=== PATIENT | male | born 1950 | race Caucasian/White ===

== ENCOUNTER 2019-12-25 11:34 | Observation (INO) | payer OTHER ==
[~2019-12-25] VITALS: Ht 182.9 cm; Wt 110.3 kg
[2019-12-25 11:34] VITALS: BP 172/108
[~2019-12-25 11:34] MED LIST: CELEXA 10 MG TA10 M1 PO; COREG25 MG PO; COZAAR100 MG PO; IPRAT-ALBUT 0.5-3 ML INH; LANTUS100 UNIT/M SUBQ; LEVAQUIN 750 M750 MG PO; LIDODERM1 EACH TOP; LIPITOR10 MG PO; MELATONIN5 M1 PO; METFORMIN HCL500 M3 PO; PLAVIX 75 MG TA75 MG PO; PREVACID30 MG PO; PRINIVIL5 MG PO; SPIRONOLACTONE25 MG PO; SUPER THERAVIT1 EACH PO; TRAMADOL 50 MG50 MG PO
[2019-12-25] MEDS ORDERED: BISACODYL10 MG RECTAL (11:45)
[2019-12-25] MEDS ORDERED: GLUCAGEN1 M2 IM (11:48)
[2019-12-25] MEDS ORDERED: FAMOTIDINE 40 M40 M1 PO (11:49)
[2019-12-25] MEDS ORDERED: MILK OF MA400 MG/5 M PO (11:49)
--- NOTE | 2019-12-25 12:56 | EKG ---
[facility] [place] [address] ELECTROCARDIOGRAM REPORT Name: ANUJ NICOLE Room #: [facility].#: [id number] Admission: 12/25/19 Attend Phys: Discharge: Date of : 46 Report #: [id number] THIS REPORT FOR: cc: Anuj Grajeda James D. DO Lundgren, Craig H. MD [facility] ~ THIS REPORT FOR: //name// [facility] ED Test Date: 2019-12-25 Test Time: 11:34:32 Pat Name: ANUJ NICOLE Department: Room: Gender: Senior Financial: [facility] : 1950 Requested By: Loly Mayes Order Number: [id number] MD: Kervin Major Measurements Intervals [place] Rate: 75 P: 45 CO: 160 QRS: 33 QRSD: 105 T: 174 QT: 441 QTc: 493 Interpretive Statements Sinus bradycardia Ventricular bigeminy Poor R wave progression Nonspecific ST and T wave abnormality no previous ECG available for comparison Electronically Signed On 12-25-2019 12:56:13 CDT by Kervin Major [email or web address] <ELECTRONICALLY SIGNED> By: Kervin Major MD, FACC 12/25/19 [id number] Kervin Major MD, [facility] /EPI
[2019-12-25 13:21] LABS: ANION GAP 9 mmol/L (7-16); BUN 23 mg/dL (7-18); CALCIUM 8.7 mg/dL (8.5-10.1); CHLORIDE 109 mmol/L (98-107); CO2 27 mmol/L (21-32); CREATININE 0.9 mg/dL (0.7-1.3); GLUCOSE 85 mg/dL (74-106); POTASSIUM 3.9 mmol/L (3.5-5.1); SODIUM 145 mmol/L (136-145)
[2019-12-25 13:26] LABS: APTT 29.2 Seconds (24.5-32.8); D-DIMER 0.41 ug/mLFEU (0.19-0.50); INR 1.1; PROTIME 11.4 Seconds (9.3-11.4)
[2019-12-25 13:32] LABS: LIPASE 62 U/L (73-393); MAGNESIUM 1.7 mg/dL (1.8-2.4); SGOT 19 U/L (15-37); SGPT 16 U/L (30-65); TOTAL BILIRUBIN 0.5 mg/dL (0.2-1.0); TOTAL PROTEIN 6.7 g/dL (6.4-8.2); TROPONIN-I <0.06 ng/mL (<0.06)
[2019-12-25 13:54] LABS: BASOPHILS 0.3 % (0.0-2.0); EOSINOPHILS 1.4 % (0.0-3.0); HEMATOCRIT 39.7 % (42.0-52.0); LYMPHOCYTES 20.3 % (24.0-44.0); MCH 28.3 pg (26.0-34.0); MCHC 32.8 g/dL (28.0-37.0); MCV 86.3 fL (80.0-100.0); MONOCYTES 9.3 % (1.0-8.0); PLATELET COUNT 200 thou/uL (150-400); POLYS 68.7 % (36.0-66.0); RDW 15.9 % (10.5-14.5); WBC 5.8 thou/uL (4.0-11.0)
[2019-12-25 17:53] VITALS: BP 160/40
[2019-12-25 19:41] VITALS: BP 168/86
[2019-12-25] MEDS ORDERED: TYLENOL325 M1 PO (23:36)
[2019-12-25] MEDS ORDERED: ONDANSETRON ODT4 MG PO (23:38)
--- NOTE | 2019-12-26 04:57 | NUR ---
PT ARRIVED TO UNIT APPROX 1850, ADMISSION AND ASSESSMENT COMPLETED. PT ALERT TO HIMSELF AND YEAR, KNEW HE WAS IN THE HOSPITAL BUT DIDN'T KNOW WHICH ONE; INCONT OF BLADDER W/ RED PERIAREA AND BUTTOCKS EXCORIATED. ON RA, DIM LUNGS, DENIES SOB. BIGEMINY WITH RATE OF 60 ON TELE. PT IS W/C BOUND, ABLE TO STAND/PIVOT WITH ASSISTANCE; FEEDS SELF, ACCUCHECK ACHS. SPOKE W/ PT'S DAUGHTER, PEEWEE, WHO IS HIS DPOA. SHE REPORTS HE LIVED IN [place] AND HAD NO SUPPORT SYSTEM, MOVED IN WITH HER IN SEP 2018. HE HAD MULTIPLE STROKES, AND WAS NO LONGER ABLE TO AMBULATE; HE WENT TO A FACILITY BC SHE COULD NO LONGER CARE FOR HIM. SHE REPORTS BEING UNAWARE OF HIM HAVING CARDIAC STENTS PLACED IN MAY 2019. NO OTHER CONCERNS, WILL CONTINUE TO MONITOR.
[2019-12-26 05:43] VITALS: BP 158/69
[2019-12-26 05:51] LABS: HEMATOCRIT 37.5 % (42.0-52.0); HEMOGLOBIN 12.5 gm/dL (14.0-18.0); MCH 28.5 pg (26.0-34.0); MCHC 33.2 g/dL (28.0-37.0); MCV 85.8 fL (80.0-100.0); RBC 4.37 mil/uL (4.50-6.00); RDW 15.6 % (10.5-14.5); WBC 5.7 thou/uL (4.0-11.0)
[2019-12-26 06:06] LABS: CALCIUM 8.4 mg/dL (8.5-10.1); CREATININE 0.8 mg/dL (0.7-1.3); POTASSIUM 3.5 mmol/L (3.5-5.1)
[2019-12-26 08:40] VITALS: BP 170/75
[2019-12-26] MEDS ORDERED: HYDRALAZINE 2525 MG PO (11:07)
[2019-12-26] MEDS ORDERED: LANTUS100 UNIT/M SUBQ (11:09)
--- NOTE | 2019-12-26 13:49 | NUR ---
Nancy from [facility] contacted this CM to get update on d/c date. cm completed assessment w/pt dtr, d/t pt having dementia dx and being a poor historian, according to pt's chart record. pt dtr, hector, stated pt lived w/her prior to moving to facility in February. stated pt seems to be adjusting to move well. pt stated she was upset the facility did not inform her pt was hospitalized; instead she received a call from ED. hector ask me to have staff from [facility] contact her to discuss. nancy stated she would reachout to [facility]. pt ambulates but has unsteady gait, and increased falls. pt has scooter walker and w/c per hector. hector stated her goal is for pt to moved back to [facility] was he is covid negative, b/c he was moved to a different facilty to covid positive result. cm to cont to follow.
--- NOTE | 2019-12-26 15:35 | NUR ---
ASSUMED CARE OF PT AT 0700. PT CONFUSED, ORIENTED TO SELF - APPEARS AT BASELINE. IN NO ACUTE DISTRESS. NOT TRUSTING STAFF TO TAKE MEDS - ONCE PATIENT SPOKE WITH DAUGHTER, IS NOW AGREEABLE TO TAKE ANTIHYPERTENSIVES. IN AND OUT OF BIGEMINY ON TELEMETRY. OK FOR DISCHARGE. WAITING ON TRANSPORT.
--- NOTE | 2019-12-26 15:35 | NUR ---
PT DISCHARGING TODAY BACK TO [facility] FOR SKILLED STAY FAXED DC ORDERS/SUMMARY TO FACILITY SPOKE WITH RODRIGUEZ IN ADM SHE RECEIVED ORDERS AND ARRANGED TRANSPORT BY [facility] FOR [phone] TODAY. SW (JORDI) NOTIFIED FAMILY OF DC. UNIT NOTIFIED AND CHART COPY PER US. RN TO CALL REPORT TO [phone].
--- NOTE | 2019-12-26 16:04 | NUR ---
[facility] D/C ORDERS AND SCHEDULED TRANSPORTATION BTWN 4-5. [facility] NOTIFIED UNIT. CM REQUESTED CHART COPY AND NOTIFIED PT'S DTR OF SCHEDULED TIME FOR [facility]. PEEWEE ALSO WANTED TO KNOW IF PT WOULD RTRN TO [facility]. PER RODRIGUEZ, PT WILL RTRN TO [facility] D/T COVID +. RN PROVIDED NUMBER TO CALL REPORT [phone]; "COVID UNIT."
[2019-12-26 16:20] VITALS: BP 163/79
== END 2019-12-26 17:05 ==
LOC: ER 11:34 → EROBS 14:30 → 3W 14:30
PROVIDERS: Physician Assistant; ADMIT Hospitalist; ATTEND Hospitalist
DX: U07.1 COVID-19 (principal); R00.1 Bradycardia, unspecified; E11.9 Type 2 diabetes mellitus without complications; I10 Essential (primary) hypertension; Z87.891 Personal history of nicotine dependence; Z79.84 Long term (current) use of oral hypoglycemic drugs; Z79.899 Other long term (current) drug therapy
CPT/HCPCS: 10879